=== PATIENT | male | born 1960 | race Caucasian/White ===

== ENCOUNTER 2022-06-10 08:07 | Emergency (ER) | payer OTHER, SELFPAY ==
--- NOTE | 2022-06-10 08:09 | ED.ABDPAIN ---
HPI - Abdominal Pain General Chief Complaint: Unspecified Stated Complaint: Abdominal Pain/ SOB Time Seen by Provider: 06/10/22 08:09 Source: patient Mode of arrival: ambulatory Limitations: no limitations History of Present Illness HPI narrative: Roland is a 62-year-old male patient presenting to clinic today with complaints of abdominal pain, bilateral lower extremity edema,and shortness of breath. He reports his abdominal pain has been going on for approximately 5 months. He reports he was seen at [facility] in [place], [place] and diagnosed with gallstones and abdominal pain. He reports the pain is worse after he is eating. He has noted some blood in his stool. He states the pain is mostly over the left upper quadrant. Lower extremity edema started this week. He denies any chest pain but does have some slight tightness and his shortness of breath is worse with lying flat. He denies any known fever or chills. Has a nonproductive cough. When asked about having nausea, vomiting, constipation, and diarrhea, he states he has had all the above Related Data Allergies Allergy/AdvReac Type Severity Reaction Status Date / Time No Known Allergies Allergy Verified 06/10/22 08:31 Review of Systems Review of Systems: Pertinent positives per HPI. Patient denies any fever, chills, rash, headache, visual changes, dizziness, chest pain, palpitations, nausea, vomiting, diarrhea, constipation, or any urinary issues. PMFSH Comments At the time of my signature, I reviewed and agree with the nursing past medical, surgical, social, and family history. There is no relevant family history pertinent to the patient complaint. Exam Narrative: General: Well-developed, well nourished, in no apparent distress Head: Normocephalic, atraumatic Eyes: Pupils equally round and reactive to light bilaterally, EOM intact, sclera and conjunctive clear, no discharge, lids normal Ears: TMs intact and clear, ear canals clear, no drainage, grossly hearing normal. Nose: Nares patent, clear discharge, no inflammation, no sinus tenderness. Mouth: Oral pharynx without lesions or masses, good dentition, MMM. Neck: Supple, trachea midline, no enlargement of anterior or posterior cervical nodes, no thyroid masses or goiter palpable. Cardio: Regular rate and rhythm, s1 and s2 normal, no murmur appreciated. Resp: Clear to auscultation bilaterally, no rhonchi, rales, wheezing or rubs Abdomen: Soft, pliable, reducible abdominal hernia, nondistended, bowel sounds present all 4 quadrants, tender to palpation over the epigastrium and the left upper quadrant, no organomegaly, no CVAT tenderness Course Course Emergency Course: Portions of this record may have been created with voice recognition software. Level of Care: Express Care Visit Vital Signs Vital signs: Vital Signs Temperature 36.6 C 06/10/22 08:18 Pulse Rate 106 H 06/10/22 08:18 Respiratory Rate 16 06/10/22 08:18 Blood Pressure 156/104 H 06/10/22 08:18 Pulse Oximetry 98 06/10/22 08:18 Oxygen Delivery Room Air 06/10/22 08:18 Temperature 36.6 C 06/10/22 08:18 Pulse Rate 106 H 06/10/22 08:18 Respiratory Rate 16 06/10/22 08:18 Blood Pressure 156/104 H 06/10/22 08:18 Pulse Oximetry 98 06/10/22 08:18 Oxygen Delivery Room Air 06/10/22 08:18 Vital signs reviewed Transfer Transfered to: [facility]) Transportation: Other ( private car) Transfer rationale: shortness of breath, abdominal pain, GI bleed, bilateral lower extremity edema Accepting physician: accepting physician was not provided Transfer comments: contacted Jesica ENRIQUEZ and report was given for continuity of care. Patient was transferred via private car MDM - Abdominal Pain MDM Narrative Medical decision making narrative: At the time of visit patient is resting comfortably on the exam table. Recommend transfer to the emergency room and patient agrees. Patient would like to be [facility]
[2022-06-10 08:18] VITALS: BP 156/104; PULSE 106; RESP 16; TEMP 36.6; O2SAT 98
== END 2022-06-10 08:37 | disposition short-term general hospital (02) ==
PROVIDERS: Emergency Provider Nurse Practitioner Family
DX: R06.02 Shortness of breath (principal); R60.0 Localized edema; K43.9 Ventral hernia without obstruction or gangrene; R10.12 Left upper quadrant pain; K92.2 Gastrointestinal hemorrhage, unspecified
CPT/HCPCS: 99212; G0463